=== PATIENT | male | born 1955 | race Caucasian/White ===

== ENCOUNTER 2019-12-06 09:23 | Day surgery (SDC) | payer MEDICARE ==
[2019-12-06] VITALS (12 sets, daily range): BP systolic 132–159; BP diastolic 62–102
[~2019-12-06] VITALS: Ht 175.3 cm; Wt 95.3 kg
[~2019-12-06 09:23] MED LIST: AMLODIPINE BESY10 MG ORAL; DESCOVY PO; GLIPIZIDE5 MG ORAL; HYDROCHLOROTHIA25 MG ORAL; Iothalamate Meglumine 60% 50ML INJ ONE; LANTUS SOL100 UNIT/1 SUBQ; LISINOPRIL40 MG ORAL; METFORMIN HCL1000 M1 ORAL; TERAZOSIN HCL1 MG ORAL; TIVICAY50 MG ORAL
[2019-12-06] MEDS ORDERED: LR 1000ml 1,000 ML IVLG SCH (09:44)
[2019-12-06] MEDS ORDERED: Metoclopramide 10mg/2ml Inj IVP PRN (09:45)
[2019-12-06] MEDS ORDERED: LORazepam Inj 2mg/ml 1ml IV PRN (09:45)
[2019-12-06] MEDS ORDERED: Atropine Sulfate 0.4mg/ml inj IVP PRN (09:45)
[2019-12-06] MEDS ORDERED: HYDROcodone/Acetamin 5/325 tab ORAL PRN ×2 (09:45→13:45)
[2019-12-06] MEDS ORDERED: Midazolam 2mg/2ml Inj IVP PRN (09:45)
[2019-12-06] MEDS ORDERED: Labetalol 5mg/ml 20ml vial IV PRN (09:45)
[2019-12-06] MEDS ORDERED: HYDROcodone/Acetamin 7.5/325 tab ORAL PRN (09:45)
[2019-12-06] MEDS ORDERED: Hydromorphone 0.5mg/0.5ml inj IVP PRN (09:45)
[2019-12-06] MEDS ORDERED: fentaNYL 100 mcg/2 mL IV PRN (09:45)
[2019-12-06] MEDS ORDERED: Meperidine 25mg/0.5ml Inj (FOR RIGORS ONLY) IV PRN (09:45)
[2019-12-06] MEDS ORDERED: Acetaminophen (Non formulary) 100 ML IV ONE (09:45)
[2019-12-06] MEDS ORDERED: DiphenhydrAMINE 50mg/ml Inj IVP PRN (09:45)
[2019-12-06] MEDS ORDERED: Ketorolac 30mg Inj IV PRN ×2 (09:45)
[2019-12-06] MEDS ORDERED: oxyCODONE HCL/Acetaminophen 5/325mg ORAL PRN (09:45)
--- NOTE | 2019-12-06 09:49 | Anethesia Preoperative Eval ---
Anesthesia Pre-op PMH/ROS General Date of Evaluation: Dec 06, 2019 Time of Evaluation: 12:29 Anesthesiologist: Price ASA Score: ASA 3 Mallampati Score Class I : Soft palate, uvula, fauces, pillars visible Class II: Soft palate, uvula, fauces visible Class III: Soft palate, base of uvula visible Class IV: Only hard plate visible Mallampati Classification: Class III Surgeon: Tiffani Diagnosis: Bladder CA Surgical Procedure: TURBT Anesthesia History: none Family History: no anesthesia problems Allergies: Coded Allergies: No Known Allergies (Unverified , 12/05/19) Medications: see eMAR Patient NPO?: Yes Past Medical History Cardiovascular: Reports: HTN, other - HL Pulmonary: Reports: other - HX of Pneumocystis Carinii Gastrointestinal/Genitourinary: Reports: other - BPH Endocrine: Reports: DM Hematology/Immune: Reports: other - HIV Other: obesity - BMI 33 Anesthesia Pre-op Phys. Exam Physician Exam Vital Signs Date Time Temp Pulse Resp B/P (MAP) Pulse Ox O2 Delivery O2 Flow Rate FiO2 12/06/19 10:02 98.4 72 18 146/81 95 Room Air Constitutional: NAD Neurologic: CN 2-12 intact Cardiovascular: RRR Respiratory: CTA Gastrointestinal: S/NT/ND Airway Exam Mallampati Score: Class III MO: full ROM: limited Teeth: missing, intact Anesthesia Pre-op A/P Risk Assessment & Plan Assessment: ASA 3 Plan: GA, SED, GlideScope Status Change Before Surgery: No Pre-Antibiotics Dru Grams Ancef IV Given Within 1 Hr of Incision: Yes Time Given: 12:36 Vishal Thrasher MD Dec 06, 2019 09:49
[2019-12-06] MEDS ORDERED: Sodium Chloride 10ml vial INJ ONE (09:57)
[2019-12-06] MEDS ORDERED: Propofol 200mg/20ml IV ONE (09:57)
[2019-12-06] MEDS ORDERED: Lidocaine 1% MPF 10mg/ml 5ml ONE (09:57)
[2019-12-06] MEDS ORDERED: ceFAZolin sod 1 GM in NS 55 ML IVPB ONE (10:00)
[2019-12-06 10:42] LABS: BASOPHILS % (AUTO) 1.4 % (0.0-2.0); EOSINOPHILS % (AUTO) 3.2 % (0.0-3.0); HEMOGLOBIN 15.2 G/DL (14.2-18.0); LYMPHOCYTES % (AUTO) 13.6 % (20.0-45.0); MEAN CORPUSCULAR VOLUME 86 FL (80-99); MONOCYTES % (AUTO) 7.8 % (1.0-10.0); PLATELET COUNT 118 K/UL (150-450); RED BLOOD COUNT 5.12 M/UL (4.70-6.10); RED CELL DISTRIBUTION WIDTH 11.5 % (11.6-14.8); WHITE BLOOD COUNT 4.3 K/UL (4.8-10.8)
[2019-12-06] MEDS ORDERED: Rocuronium Bromide 50mg/5ml Inj IV ONE (12:00)
[2019-12-06] MEDS ORDERED: LR 1000ml ONE (12:30)
[2019-12-06] MEDS ORDERED: NS Irrig 2000ml IRRIG ONE (12:30)
[2019-12-06] MEDS ORDERED: Neostigmine 1mg/ml 10ml Inj ONE (12:30)
[2019-12-06] MEDS ORDERED: NS Irrig 4000ml IRRIG ONE (12:30)
[2019-12-06] MEDS ORDERED: NS Irrig 1000ml ONE (12:30)
[2019-12-06] MEDS ORDERED: Sterile Water Irrig 1000ml IRRIG ONE (12:30)
--- NOTE | 2019-12-06 12:31 | Pre-Procedure Note/Attestation ---
Pre-Procedure Note/Attestation Complete Prior to Procedure Planned Procedure: not applicable Procedure Narrative: TURBT RPG Indications for Procedure Pre-Operative Diagnosis: bladder mass Attestation I attest that I discussed the nature of the procedure; its benefits; risks and complications; and alternatives (and the risks and benefits of such alternatives ), prior to the procedure, with the patient (or the patient's legal licensing representative). I attest that, if there was a reasonable possibility of needing a blood transfusion, the patient (or the patient's legal licensing representative) was given the [facility] standardized written summary, pursuant to the [place]avon Adam Blood Safety Act ([place] Health and Safety Code # 1645, as amended). I attest that I re-evaluated the patient just prior to the surgery and that there has been no change in the patient's H&P, except as documented below: Domo Nixon MD Dec 06, 2019 12:31
[2019-12-06] MEDS ORDERED: fentaNYL 100 mcg/2 mL IV ONE (12:57)
--- NOTE | 2019-12-06 13:04 | 48 Hour Post Anesthesia Eval ---
Post Anesthesia Evaluation Procedure: TURBT Date of Evaluation: Dec 06, 2019 Time of Evaluation: 16:12 Blood Pressure Systolic: 142 0: 76 Pulse Rate: 83 Respiratory Rate: 18 Temperature (Fahrenheit): 98 O2 Sat by Pulse Oximetry: 99 Airway: patent Nausea: No Vomiting: No Pain Intensity: 2 Hydration Status: adequate Cardiopulmonary Status: Stable Mental Status/LOC: patient returned to baseline Follow-up Care/Observations: 0 Post-Anesthesia Complications: 0 Follow-up care needed: ready to discharge Vishal Thrasher MD Dec 06, 2019 13:04
--- NOTE | 2019-12-06 13:04 | Immediate Post-Op Evaluation ---
Immediate Post-Op Evalulation Immediate Post-Op Evalulation Procedure: TURBT Date of Evaluation: Dec 06, 2019 Time of Evaluation: 13:59 IV Fluids: 700 LR Blood Products: 0 Estimated Blood Loss: 30 Urinary Output: 200 Blood Pressure Systolic: 159 Blood Pressure Diastolic: 96 Pulse Rate: 106 Respiratory Rate: 16 O2 Sat by Pulse Oximetry: 98 Temperature (Fahrenheit): 97.6 Pain Score (1-10): 2 Nausea: No Vomiting: No Complications 0 Patient Status: awake, reacts, patent, extubated, none Hydration Status: adequate Dru Grams Ancef IV Given Within 1 Hr of Incision: Yes Time Given: 12:36 Vishal Thrasher MD Dec 06, 2019 13:03
[2019-12-06] MEDS ORDERED: Glycopyrrolate 0.2mg/ml 1ml Vial ONE (13:26)
[2019-12-06] MEDS ORDERED: ePHEDrine 50mg/ml Inj ONE (13:30)
--- NOTE | 2019-12-06 13:40 | Brief Operative Note ---
Immediate Post Operative Note Operative Note Pre-op Diagnosis: bladder mass Procedure: TURBT Post-op Diagnosis: same Post-op Diagnosis: same as pre-op Surgeon: Murray Nixon Anesthesia: general Specimen: yes Complications: none Condition: stable Fluids: 1000 Estimated Blood Loss: minimal Implant(s) used?: No Domo Nixon MD Dec 06, 2019 13:40
[2019-12-06] MEDS ORDERED: D5 1/2NS 1,000 ML IV SCH (13:45)
[2019-12-06] MEDS ORDERED: Tylenol #3 tab (300mg/30mg) ORAL PRN (13:45)
[2019-12-06] MEDS ORDERED: HYDROmorphone 1mg/ml Carpuject SUBQ PRN (13:45)
--- NOTE | 2019-12-06 14:05 | Diagnostic Imaging Report ---
INDICATION: Pain, intraoperative TECHNIQUE: Intraoperative imaging Fluoroscopy time: 46.1 seconds Total dose: [id number] mGym2 Total number of images: 9 COMPARISON: None FINDINGS: Intraoperative images demonstrate opacification of the left ureter and left renal collecting system. Filling defects are seen at the ureteropelvic junction, calculi versus air bubbles. The right renal collecting system and ureter are opacified and appear normal in caliber. IMPRESSION: Intraoperative imaging, as described
--- NOTE | 2019-12-09 | Operative Note - Dictated ---
DATE OF OPERATION: 12/06/2019 PREOPERATIVE DIAGNOSIS: Bladder mass. POSTOPERATIVE DIAGNOSIS: Bladder mass. OPERATIONS: 1. Transurethral resection of bladder tumor. 2. Bilateral retrograde pyelogram. BUYER GRAIN: Domo Nixon MD ANESTHESIA: General. FINDINGS: Large 5 cm mass in the right lateral wall of the bladder. INDICATIONS FOR SURGERY: The patient had hematuria, and ultrasound followed by cystoscopy showed bladder mass suspicious for transitional cell carcinoma. Treatment options were explained to him in great length including all potential complications. He signed a consent. DESCRIPTION OF SURGERY: He was brought to the operating room, placed in lithotomy position. Prepped and draped in standard fashion. Under general anesthesia, cystoscope was introduced. Bilateral retrograde pyelograms were performed. No evidence of tumors in the upper tract. After that, using the resectoscope, the tumor was resected all the way and all the chips were sent for pathologic examination. Hemostasis. Bladder was irrigated. [place] 20-[place] was placed and left indwelling. The patient tolerated the procedure well. Sponge count and instrument count was correct. Domo Nixon M.D. DR: David JOB#: [id number] CC:
== END 2019-12-06 15:50 | disposition home or self-care (01) ==
LOC: SUR 09:23
DX: N32.89 Other specified disorders of bladder (principal); B20 Human immunodeficiency virus [HIV] disease; E11.9 Type 2 diabetes mellitus without complications; I10 Essential (primary) hypertension; Z85.048 Personal history of other malignant neoplasm of rectum, rectosigmoid junction, and anus; Z87.891 Personal history of nicotine dependence; E66.9 Obesity, unspecified; Z68.31 Body mass index [BMI] 31.0-31.9, adult
CPT/HCPCS: 36415; 52005; 52235; 74420; 76000; 85025; C1769; J0131; J0690; J2250; J2405; J2704; J2710; J3010; J7120; 94003; 94150